=== PATIENT | male | born 1975 | race Caucasian/White ===

== ENCOUNTER 2022-07-26 10:09 | Emergency (ER) | payer SELFPAY ==
[2022-07-26] MEDS ORDERED: Lidocaine 1% PF 5 ML VIAL ONE (11:00)
[2022-07-26] MEDS ORDERED: Cefepime 2 GM VIAL ONE (11:27)
[2022-07-26 11:35] LABS: ALT (SGPT) 11 U/L (8-55); AST (SGOT) 13 U/L (5-34); Albumin 3.2 g/dL (3.5-5.0); Alkaline Phosphatase 248 U/L (40-110); Anion Gap 13 mmol/L (10-20); BUN (Urea Nitrogen) 16 mg/dL (8.9-20.6); Bilirubin, Total 0.7 mg/dL (0.2-1.2); CK (CPK) 45 U/L (30-200); Calc. Creatinine Clearance 0 mL/min (70-130); Calcium 8.9 mg/dL (7.8-10.44); Carbon Dioxide 27 mmol/L (22-29); Chloride 94 mmol/L (98-107); Estimated GFR 77; Globulin 3.4 g/dL (2.4-3.5); Potassium 4.4 mmol/L (3.5-5.1); Protein, Total 6.6 g/dL (6.0-8.3); Sodium 130 mmol/L (136-145)
[2022-07-26 11:38] LABS: Glucose 463 mg/dL (70-105)
[2022-07-26 11:54] LABS: Band 2 % (5-11); Hemoglobin 16.1 g/dL (14.0-18.0); Lymphocytes 13 % (21-51); MDiff Complete? YES; Mean Corpuscular HGB CONC 34.3 g/dL (32.0-36.0); Mean Corpuscular Hemoglobin 29.6 pg (27.0-31.0); Mean Corpuscular Volume 86.2 fl (78.0-98.0); Mean Platelet Volume 8.3 fL (7.4-10.4); Monocytes 11 % (0-10); Neutrophil 74 % (42-75); Platelet Count 289 10x3/uL (130-400); Platelet Morphology Comment Appears Adequate; RBC Distribution Width 11.7 % (11.5-14.5); Red Blood Cell (RBC) Count 5.44 mill/uL (4.70-6.10); White Blood Cell (WBC) Count 22.8 10x3/uL (4.8-10.8)
[2022-07-26] MEDS ORDERED: VANCOMYCIN 2 GRAM/500 ML BAG 2 GM in Premix Bag 1 BAG IVPB SCH (12:00)
[2022-07-26] MEDS ORDERED: Vancomycin 1.5 GRAM/300 ML BAG 1.5 GM in Premix Bag 1 BAG IVPB SCH (12:00)
== END 2022-07-26 13:44 | disposition home or self-care (01) ==
LOC: ERS 10:09
DX: L02.11 Cutaneous abscess of neck (principal); E11.9 Type 2 diabetes mellitus without complications
CPT/HCPCS: 10060; 36415; 80053; 82550; 83605; 85025; 87070; 87077; 87186; 87205; 93005; 96365; 96367; J0692; J3370

== ENCOUNTER 2022-08-02 15:30 | Inpatient (IN) | payer SELFPAY ==
[~2022-08-02 15:30] MED LIST: Iopamidol-370 76% 500 ML 1 ML ONE
[2022-08-02 16:06] LABS: Hemoglobin 15.5 g/dL (14.0-18.0); Mean Corpuscular HGB CONC 33.6 g/dL (32.0-36.0); Mean Corpuscular Volume 86.1 fl (78.0-98.0); Mean Platelet Volume 8.8 fL (7.4-10.4); Platelet Count 402 10x3/uL (130-400); RBC Distribution Width 12.1 % (11.5-14.5); Red Blood Cell (RBC) Count 5.36 mill/uL (4.70-6.10); White Blood Cell (WBC) Count 46.6 10x3/uL (4.8-10.8)
[2022-08-02 16:25] LABS: ALT (SGPT) 22 U/L (8-55); AST (SGOT) 34 U/L (5-34); Albumin 2.6 g/dL (3.5-5.0); Alkaline Phosphatase 413 U/L (40-110); Anion Gap 17 mmol/L (10-20); BUN (Urea Nitrogen) 18 mg/dL (8.9-20.6); Bilirubin, Total 2.3 mg/dL (0.2-1.2); Calc. Creatinine Clearance 0 mL/min (70-130); Calcium 9.2 mg/dL (7.8-10.44); Carbon Dioxide 28 mmol/L (22-29); Chloride 88 mmol/L (98-107); Estimated GFR 84; Globulin 4.3 g/dL (2.4-3.5); Glucose 387 mg/dL (70-105); Protein, Total 6.9 g/dL (6.0-8.3); Sodium 129 mmol/L (136-145)
[2022-08-02 16:34] LABS: Band 22 % (5-11); Lymphocytes 3 % (21-51); MDiff Complete? YES; Monocytes 10 % (0-10); Neutrophil 64 % (42-75); Platelet Morphology Comment Appears Increased; RBC Morphology Normal; Reactive Lymphocytes 1 % (0-10)
[2022-08-02] MEDS ORDERED: Vancomycin 1.5 GRAM/300 ML BAG 1.5 GM in Premix Bag 1 BAG IVPB SCH (16:45)
[2022-08-02 16:48] LABS: CKMB 0.5 ng/mL (0-6.6)
[2022-08-02] MEDS ORDERED: Piperacillin/Tazobactam 4.5 GM VIAL ONE (16:56)
[2022-08-02] MEDS ORDERED: Aspirin Chewable 81 MG TAB ONE (17:38)
[2022-08-02] MEDS ORDERED: Ondansetron ODT 4 MG TAB PO PRN (18:05)
[2022-08-02] MEDS ORDERED: Ondansetron PF 4 MG/2 ML Vial IVP PRN (18:05)
[2022-08-02] MEDS ORDERED: Dextrose 50% Abboject 50 ML SYRINGE SLOW IVP PRN (18:19)
[2022-08-02] MEDS ORDERED: Dextrose 5% in Water 1,000 ML IV PRN (18:19)
[2022-08-02 18:43] LABS: Hemoglobin A1c 10.3 % (4.0-6.0)
[2022-08-02 20:32] LABS: Troponin I Less than 0.010 ng/mL (< 0.028)
[2022-08-02 21:02] VITALS: BMI 21.7
[2022-08-02] MEDS: Sodium Chloride 0.9% 1,000 ML IV SCH (21:04)
[2022-08-02] MEDS: Piperacillin/Tazobactam 3.375 GM in Sodium Chloride 0.9% 100 ML IVPB SCH (21:10)
[2022-08-02] MEDS: HumaLOG 300 UNITS/3 ML VIAL SC PRN (21:14)
[2022-08-02] MEDS: Nicotine 14 MG PATCH TD SCH (21:14)
[2022-08-02] MEDS: Acetaminophen 325 MG TAB PO PRN (23:56)
[2022-08-03 01:46] LABS: Troponin I 0.156 ng/mL (< 0.028)
[2022-08-03] MEDS: Acetaminophen 325 MG TAB PO PRN ×2 (03:40→17:03)
[2022-08-03] MEDS: Sodium Chloride 0.9% 1,000 ML IV SCH ×2 (04:28→14:02)
[2022-08-03] MEDS: VANCOMYCIN 1.25 GM/250 ML BAG 1.25 GM in Premix Bag 1 BAG IVPB SCH ×2 (05:24→18:26)
[2022-08-03] MEDS: HumaLOG 300 UNITS/3 ML VIAL SC PRN ×4 (05:27→21:37)
[2022-08-03 06:53] LABS: Anion Gap 12 mmol/L (10-20); BUN (Urea Nitrogen) 23 mg/dL (8.9-20.6); Calc. Creatinine Clearance 78 mL/min (70-130); Calcium 7.9 mg/dL (7.8-10.44); Carbon Dioxide 22 mmol/L (22-29); Chloride 94 mmol/L (98-107); Estimated GFR 78; Glucose 312 mg/dL (70-105); Potassium 3.3 mmol/L (3.5-5.1); Sodium 125 mmol/L (136-145)
[2022-08-03 06:57] LABS: Troponin I 0.016 ng/mL (< 0.028)
[2022-08-03 07:38] LABS: Hemoglobin 11.8 g/dL (14.0-18.0); Mean Corpuscular HGB CONC 33.1 g/dL (32.0-36.0); Mean Corpuscular Hemoglobin 28.7 pg (27.0-31.0); Mean Corpuscular Volume 86.6 fl (78.0-98.0); Mean Platelet Volume 8.7 fL (7.4-10.4); Platelet Count 345 10x3/uL (130-400); Red Blood Cell (RBC) Count 4.11 mill/uL (4.70-6.10); White Blood Cell (WBC) Count 37.5 10x3/uL (4.8-10.8)
[2022-08-03] MEDS: Piperacillin/Tazobactam 3.375 GM in Sodium Chloride 0.9% 100 ML IVPB SCH ×3 (08:13→21:36)
[2022-08-03 08:18] LABS: Band 47 % (5-11); Lymphocytes 2 % (21-51); MDiff Complete? YES; Metamyelocyte 1 % (0-0); Monocytes 6 % (0-10); Neutrophil 43 % (42-75); Platelet Morphology Comment Appears Adequate; RBC Morphology Normal; Reactive Lymphocytes 1 % (0-10); Toxic Granulation SLIGHT; Vacuoles SLIGHT
[2022-08-03] MEDS ORDERED: Insulin Glargine 30 UNITS/0.3 ML VIAL SC SCH (09:45)
[2022-08-03] MEDS ORDERED: Morphine 4 MG/ML VIAL SLOW IVP PRN (10:49)
[2022-08-03 16:21] LABS: HIV (1/2) Antibody/Antigen Non-Reactive (NonReactive); HIV 1/2 INDEX 0.18 S/CO (<1.00); Hep C IgG Ab Non-Reactive (NonReactive); Hep C Index 0.09 S/CO (0-0.79)
[2022-08-03] MEDS: Nicotine 14 MG PATCH TD SCH (17:33)
[2022-08-04] MEDS: Sodium Chloride 0.9% 1,000 ML IV SCH ×3 (00:23→22:16)
[2022-08-04] MEDS: Piperacillin/Tazobactam 3.375 GM in Sodium Chloride 0.9% 100 ML IVPB SCH ×2 (05:20→14:30)
[2022-08-04] MEDS: HumaLOG 300 UNITS/3 ML VIAL SC PRN (05:21)
[2022-08-04] MEDS: Acetaminophen 325 MG TAB PO PRN (05:27)
[2022-08-04 05:59] LABS: Hemoglobin 12.2 g/dL (14.0-18.0); Mean Corpuscular HGB CONC 34.4 g/dL (32.0-36.0); Mean Corpuscular Hemoglobin 29.6 pg (27.0-31.0); Mean Corpuscular Volume 86.1 fl (78.0-98.0); Mean Platelet Volume 8.8 fL (7.4-10.4); Platelet Count 351 10x3/uL (130-400); RBC Distribution Width 12.2 % (11.5-14.5); Red Blood Cell (RBC) Count 4.13 mill/uL (4.70-6.10); White Blood Cell (WBC) Count 33.4 10x3/uL (4.8-10.8)
[2022-08-04 06:12] LABS: Vancomycin, Trough 18.1 ug/mL
[2022-08-04 06:14] LABS: Anion Gap 14 mmol/L (10-20); BUN (Urea Nitrogen) 23 mg/dL (8.9-20.6); Calc. Creatinine Clearance 93 mL/min (70-130); Calcium 8.1 mg/dL (7.8-10.44); Carbon Dioxide 22 mmol/L (22-29); Chloride 96 mmol/L (98-107); Estimated GFR 96; Glucose 193 mg/dL (70-105); Potassium 3.6 mmol/L (3.5-5.1); Sodium 128 mmol/L (136-145)
[2022-08-04] MEDS: VANCOMYCIN 1.25 GM/250 ML BAG 1.25 GM in Premix Bag 1 BAG IVPB SCH ×2 (06:38→22:16)
[2022-08-04 08:59] LABS: Band 18 % (5-11); Lymphocytes 4 % (21-51); MDiff Complete? YES; Monocytes 7 % (0-10); Myelocyte 2 % (0-0); Neutrophil 69 % (42-75); Platelet Morphology Comment Appears Adequate; Toxic Granulation SLIGHT
[2022-08-04] MEDS ORDERED: Insulin Glargine 30 UNITS/0.3 ML VIAL SC SCH ×2 (09:00)
[2022-08-04] MEDS ORDERED: Fentanyl 250 MCG/5 ML VIAL ONE (16:20)
[2022-08-04] MEDS ORDERED: Midazolam HCl 2 mg/2 ml Vial ONE (16:20)
[2022-08-04] MEDS ORDERED: HYDROmorphone 0.5 MG/0.5 ML SYRINGE ONE (16:21)
[2022-08-04] MEDS ORDERED: PROPOFOL 200 MG/20 ML VIAL ONE (16:36)
[2022-08-04] MEDS ORDERED: Ondansetron PF 4 MG/2 ML Vial ONE (16:36)
[2022-08-04] MEDS ORDERED: Rocuronium Bromide 10 MG/ML (10ML VIAL) ONE (16:36)
[2022-08-04] MEDS ORDERED: PHENYLEPHRINE-NS 100 MCG/ML 10 ML SYRINGE ONE (16:36)
[2022-08-04] MEDS ORDERED: Succinylcholine Chloride 100 MG/5 ML SYRINGE FS ONE (16:36)
[2022-08-04] MEDS ORDERED: Lidocaine 1% PF 5 ML VIAL ONE (16:36)
[2022-08-04] MEDS ORDERED: Dexmedetomidine 200 MCG/2 ML VIAL ONE (17:34)
[2022-08-04] MEDS ORDERED: Promethazine HCl 25 MG/ML VIAL IM PRN ×2 (17:40→17:44)
[2022-08-04] MEDS ORDERED: Naloxone HCl 0.4 mg/ml Vial IV PRN (17:40)
[2022-08-04] MEDS ORDERED: diphenhydrAMINE 50 MG/ML VIAL IVP PRN (17:40)
[2022-08-04] MEDS ORDERED: diphenhydrAMINE 25 MG CAP PO PRN (17:40)
[2022-08-04] MEDS ORDERED: Ondansetron PF 4 MG/2 ML Vial IVP PRN (17:40)
[2022-08-04] MEDS ORDERED: HYDROmorphone 10 mg/100 ml CADD IVPB PRN (17:40)
[2022-08-04] MEDS ORDERED: diphenhydrAMINE 50 MG/ML VIAL IM PRN (17:40)
[2022-08-04] MEDS ORDERED: Zolpidem Tartrate 5 MG TAB PO PRN (17:40)
[2022-08-04] MEDS ORDERED: Ketorolac Tromethamine 30 MG/ML VIAL IVP PRN ×2 (17:43→17:44)
[2022-08-04] MEDS ORDERED: Ondansetron HCl/PF 4 MG/2 ML Vial IVP PRN (17:44)
[2022-08-04] MEDS ORDERED: Promethazine HCl 25 MG/ML VIAL IVPB PRN (17:44)
[2022-08-04] MEDS ORDERED: Communication Order-Pharmacy FS SCH (17:45)
[2022-08-04] MEDS: Nicotine 14 MG PATCH TD SCH ×2 (22:17→22:57)
[2022-08-04] MEDS: Gabapentin 300 MG CAP PO SCH (22:30)
[2022-08-05] MEDS: Piperacillin/Tazobactam 3.375 GM in Sodium Chloride 0.9% 100 ML IVPB SCH ×4 (00:25→21:45)
[2022-08-05] MEDS: Ketorolac Tromethamine 30 MG/ML VIAL IVP SCH ×2 (00:36→06:09)
[2022-08-05] MEDS ORDERED: Sodium Chloride 0.9% 500 ML IV SCH ×2 (04:00→05:15)
[2022-08-05] MEDS: Sodium Chloride 0.9% 1,000 ML IV SCH ×3 (04:18→21:47)
[2022-08-05 04:47] LABS: Anion Gap 9 mmol/L (10-20); BUN (Urea Nitrogen) 27 mg/dL (8.9-20.6); Calc. Creatinine Clearance 90 mL/min (70-130); Carbon Dioxide 22 mmol/L (22-29); Chloride 101 mmol/L (98-107); Estimated GFR 92; Glucose 222 mg/dL (70-105); Potassium 3.7 mmol/L (3.5-5.1); Sodium 128 mmol/L (136-145)
[2022-08-05 05:07] LABS: Calcium 6.9 mg/dL (7.8-10.44)
[2022-08-05 06:04] LABS: Hemoglobin 8.5 g/dL (14.0-18.0); Mean Corpuscular HGB CONC 33.2 g/dL (32.0-36.0); Mean Corpuscular Hemoglobin 29.1 pg (27.0-31.0); Mean Corpuscular Volume 87.7 fl (78.0-98.0); Mean Platelet Volume 9.1 fL (7.4-10.4); Platelet Count 239 10x3/uL (130-400); RBC Distribution Width 12.4 % (11.5-14.5); Red Blood Cell (RBC) Count 2.94 mill/uL (4.70-6.10); White Blood Cell (WBC) Count 23.8 10x3/uL (4.8-10.8)
[2022-08-05] MEDS: VANCOMYCIN 1.25 GM/250 ML BAG 1.25 GM in Premix Bag 1 BAG IVPB SCH ×2 (06:12→18:59)
[2022-08-05 07:55] LABS: Band 14 % (5-11); Lymphocytes 9 % (21-51); MDiff Complete? YES; Monocytes 11 % (0-10); Myelocyte 1 % (0-0); Neutrophil 65 % (42-75); Platelet Morphology Comment Appears Adequate; Polychromasia SLIGHT = 2-3 cells (100X) (0-2/hpf)
[2022-08-05] MEDS: Gabapentin 300 MG CAP PO SCH ×3 (08:14→20:15)
[2022-08-05] MEDS: Insulin Glargine 30 UNITS/0.3 ML VIAL SC SCH (09:25)
[2022-08-05] MEDS ORDERED: HYDROcodone/Acetaminophen 5/325 mg Tablet PO PRN ×2 (12:05→12:06)
[2022-08-05] MEDS ORDERED: traMADol HCl 50 MG TAB PO PRN ×2 (12:06)
[2022-08-05] MEDS ORDERED: Fentanyl 100 MCG/2 ML VIAL SLOW IVP PRN (12:07)
[2022-08-05] MEDS: Albumin 25% 25 GM/100 ML BOT IVPB SCH ×3 (12:51→23:50)
[2022-08-05] MEDS: HumaLOG 300 UNITS/3 ML VIAL SC PRN ×3 (12:51→20:16)
[2022-08-05] MEDS: Nicotine 14 MG PATCH TD SCH (17:24)
[2022-08-05 17:45] LABS: Vancomycin, Trough 28.3 ug/mL
[2022-08-05] MEDS: Calcium Carbonate 600 MG TAB PO SCH (20:15)
[2022-08-06] MEDS: Piperacillin/Tazobactam 3.375 GM in Sodium Chloride 0.9% 100 ML IVPB SCH ×3 (05:01→21:20)
[2022-08-06] MEDS: Albumin 25% 25 GM/100 ML BOT IVPB SCH (05:07)
[2022-08-06] MEDS: Acetaminophen 325 MG TAB PO PRN (05:27)
[2022-08-06] MEDS: Sodium Chloride 0.9% 1,000 ML IV SCH (05:34)
[2022-08-06] MEDS ORDERED: Vancomycin HCl 750 MG in Sodium Chloride 0.9% 250 ML 250 ML IVPB SCH (06:00)
[2022-08-06 06:36] LABS: Hemoglobin 7.5 g/dL (14.0-18.0); Mean Corpuscular HGB CONC 33.1 g/dL (32.0-36.0); Mean Corpuscular Hemoglobin 28.7 pg (27.0-31.0); Mean Corpuscular Volume 86.8 fl (78.0-98.0); Mean Platelet Volume 8.3 fL (7.4-10.4); Platelet Count 352 10x3/uL (130-400); RBC Distribution Width 12.5 % (11.5-14.5); White Blood Cell (WBC) Count 20.7 10x3/uL (4.8-10.8)
[2022-08-06 06:38] LABS: Vancomycin, Random 22.6 ug/mL (See Comment)
[2022-08-06 06:50] LABS: Anion Gap 12 mmol/L (10-20); BUN (Urea Nitrogen) 45 mg/dL (8.9-20.6); Calc. Creatinine Clearance 41 mL/min (70-130); Calcium 7.5 mg/dL (7.8-10.44); Carbon Dioxide 23 mmol/L (22-29); Chloride 101 mmol/L (98-107); Estimated GFR 36; Glucose 175 mg/dL (70-105); Potassium 3.7 mmol/L (3.5-5.1); Sodium 132 mmol/L (136-145)
[2022-08-06] MEDS: Calcium Carbonate 600 MG TAB PO SCH ×2 (07:59→21:20)
[2022-08-06] MEDS: Cholecalciferol 1,000 UNITS (25 MCG) TAB PO SCH (07:59)
[2022-08-06] MEDS: Insulin Glargine 30 UNITS/0.3 ML VIAL SC SCH (07:59)
[2022-08-06] MEDS: Gabapentin 300 MG CAP PO SCH ×3 (08:00→21:20)
[2022-08-06] MEDS ORDERED: Calcium Carbonate 600 MG + Vit D TAB PO SCH (08:00)
[2022-08-06 08:32] LABS: Band 11 % (5-11); Eosinophils 1 % (0-10); Lymphocytes 15 % (21-51); MDiff Complete? YES; Metamyelocyte 2 % (0-0); Monocytes 6 % (0-10); Myelocyte 6 % (0-0); Neutrophil 59 % (42-75); Polychromasia MODERATE = 3-4 cells (100X) (0-2/hpf)
[2022-08-06] MEDS: Vancomycin HCl 750 MG in Sodium Chloride 0.9% 250 ML 250 ML IVPB SCH (17:28)
[2022-08-06] MEDS: Nicotine 14 MG PATCH TD SCH ×2 (17:31→17:33)
[2022-08-06] MEDS: HumaLOG 300 UNITS/3 ML VIAL SC PRN (21:21)
[2022-08-07] MEDS: Piperacillin/Tazobactam 3.375 GM in Sodium Chloride 0.9% 100 ML IVPB SCH (05:55)
[2022-08-07 06:21] LABS: Hemoglobin 8.6 g/dL (14.0-18.0); Mean Corpuscular HGB CONC 33.1 g/dL (32.0-36.0); Mean Corpuscular Hemoglobin 28.5 pg (27.0-31.0); Mean Platelet Volume 8.3 fL (7.4-10.4); Platelet Count 446 10x3/uL (130-400); RBC Distribution Width 12.8 % (11.5-14.5); Red Blood Cell (RBC) Count 3.02 mill/uL (4.70-6.10); White Blood Cell (WBC) Count 23.2 10x3/uL (4.8-10.8)
[2022-08-07 06:37] LABS: Anion Gap 10 mmol/L (10-20); BUN (Urea Nitrogen) 60 mg/dL (8.9-20.6); Calc. Creatinine Clearance 34 mL/min (70-130); Calcium 7.4 mg/dL (7.8-10.44); Carbon Dioxide 21 mmol/L (22-29); Chloride 104 mmol/L (98-107); Estimated GFR 28; Glucose 260 mg/dL (70-105); Potassium 3.9 mmol/L (3.5-5.1); Sodium 131 mmol/L (136-145)
[2022-08-07] MEDS: HumaLOG 300 UNITS/3 ML VIAL SC PRN ×2 (06:40→20:42)
[2022-08-07 06:41] LABS: Band 9 % (5-11); Eosinophils 2 % (0-10); Hypochromia SLIGHT = 6-15 cells (100X) (0-5/hpf); Lymphocytes 16 % (21-51); MDiff Complete? YES; Monocytes 11 % (0-10); Neutrophil 62 % (42-75); Platelet Morphology Comment Appears Adequate
[2022-08-07] MEDS: Calcium Carbonate 600 MG TAB PO SCH ×2 (07:49→20:41)
[2022-08-07] MEDS: Cholecalciferol 1,000 UNITS (25 MCG) TAB PO SCH (07:50)
[2022-08-07] MEDS: Gabapentin 300 MG CAP PO SCH ×3 (07:50→20:41)
[2022-08-07] MEDS: Insulin Glargine 30 UNITS/0.3 ML VIAL SC SCH (07:51)
[2022-08-07] MEDS ORDERED: Sodium Chloride 0.9% 1,000 ML IV SCH (12:30)
[2022-08-07] MEDS ORDERED: Vancomycin Dose by Levels Sliding Scale (Wt <71) FS SCH (12:45)
[2022-08-07] MEDS: metroNIDAZOLE 250 MG TAB PO SCH ×2 (14:57→20:41)
[2022-08-07] MEDS ORDERED: HYDROmorphone 2 MG/ML VIAL ONE (15:29)
[2022-08-07] MEDS ORDERED: Acetaminophen 500 MG TAB PO PRN ×2 (16:11→16:30)
[2022-08-07] MEDS ORDERED: Acetaminophen 500 MG TAB PO SCH (16:15)
[2022-08-07] MEDS ORDERED: PROPOFOL 200 MG/20 ML VIAL ONE (16:18)
[2022-08-07] MEDS ORDERED: Rocuronium Bromide 10 MG/ML (10ML VIAL) ONE (16:18)
[2022-08-07] MEDS ORDERED: Lidocaine 1% PF 5 ML VIAL ONE (16:18)
[2022-08-07] MEDS ORDERED: Succinylcholine Chloride 100 MG/5 ML SYRINGE FS ONE (16:18)
[2022-08-07] MEDS ORDERED: ePHEDrine 50 MG/ML VIAL ONE (16:18)
[2022-08-07] MEDS ORDERED: PHENYLEPHRINE-NS 100 MCG/ML 10 ML SYRINGE ONE (16:18)
[2022-08-07] MEDS ORDERED: Ketorolac Tromethamine 30 MG/ML VIAL ONE (16:18)
[2022-08-07] MEDS ORDERED: Ondansetron PF 4 MG/2 ML Vial ONE (16:18)
[2022-08-07] MEDS: Vancomycin HCl 750 MG in Sodium Chloride 0.9% 250 ML 250 ML IVPB SCH (18:03)
[2022-08-07] MEDS: Nicotine 14 MG PATCH TD SCH (18:08)
[2022-08-07] MEDS: Cipro 250 MG TAB PO SCH (20:41)
[2022-08-08] MEDS: HumaLOG 300 UNITS/3 ML VIAL SC PRN ×4 (06:16→20:57)
[2022-08-08] MEDS: Cipro 250 MG TAB PO SCH ×2 (06:16→20:56)
[2022-08-08 07:46] LABS: Hemoglobin 8.4 g/dL (14.0-18.0); Mean Corpuscular HGB CONC 33.4 g/dL (32.0-36.0); Mean Corpuscular Hemoglobin 28.9 pg (27.0-31.0); Mean Corpuscular Volume 86.4 fl (78.0-98.0); Mean Platelet Volume 8.1 fL (7.4-10.4); Platelet Count 462 10x3/uL (130-400); RBC Distribution Width 13.4 % (11.5-14.5); Red Blood Cell (RBC) Count 2.89 mill/uL (4.70-6.10); White Blood Cell (WBC) Count 22.1 10x3/uL (4.8-10.8)
[2022-08-08 08:06] LABS: ALT (SGPT) 14 U/L (8-55); AST (SGOT) 23 U/L (5-34); Albumin 2.1 g/dL (3.5-5.0); Alkaline Phosphatase 680 U/L (40-110); Anion Gap 8 mmol/L (10-20); BUN (Urea Nitrogen) 59 mg/dL (8.9-20.6); Bilirubin, Total 3.2 mg/dL (0.2-1.2); Calc. Creatinine Clearance 35 mL/min (70-130); Calcium 8.2 mg/dL (7.8-10.44); Carbon Dioxide 21 mmol/L (22-29); Chloride 107 mmol/L (98-107); Estimated GFR 30; Globulin 2.9 g/dL (2.4-3.5); Glucose 240 mg/dL (70-105); Potassium 3.8 mmol/L (3.5-5.1); Sodium 132 mmol/L (136-145)
[2022-08-08 08:13] LABS: Band 6 % (5-11); Eosinophils 1 % (0-10); Lymphocytes 7 % (21-51); MDiff Complete? YES; Metamyelocyte 3 % (0-0); Monocytes 2 % (0-10); Myelocyte 4 % (0-0); Neutrophil 77 % (42-75); Toxic Granulation SLIGHT
[2022-08-08] MEDS: Insulin Glargine 30 UNITS/0.3 ML VIAL SC SCH (08:29)
[2022-08-08] MEDS: Calcium Carbonate 600 MG TAB PO SCH ×2 (08:29→20:57)
[2022-08-08] MEDS: Cholecalciferol 1,000 UNITS (25 MCG) TAB PO SCH (08:29)
[2022-08-08] MEDS: Gabapentin 300 MG CAP PO SCH ×3 (08:29→20:56)
[2022-08-08] MEDS: metroNIDAZOLE 250 MG TAB PO SCH ×3 (08:29→20:57)
[2022-08-08] MEDS: Polyethylene Glycol 3350 17 GM Packet PO SCH (08:30)
[2022-08-08] MEDS ORDERED: Lidocaine 4% Topical Sol 50 ML BOT TOP PRN (11:57)
[2022-08-08 17:29] LABS: Vancomycin, Trough 18.7 ug/mL
[2022-08-08] MEDS: Nicotine 14 MG PATCH TD SCH (17:32)
[2022-08-09] MEDS: HumaLOG 300 UNITS/3 ML VIAL SC PRN ×4 (05:10→20:33)
[2022-08-09] MEDS: Cipro 250 MG TAB PO SCH ×2 (05:10→20:33)
[2022-08-09] MEDS ORDERED: Calcium Carbonate 500 MG ChewTAB PO PRN (05:42)
[2022-08-09 05:56] LABS: ALT (SGPT) 14 U/L (8-55); AST (SGOT) 23 U/L (5-34); Albumin 2.1 g/dL (3.5-5.0); Alkaline Phosphatase 784 U/L (40-110); Anion Gap 9 mmol/L (10-20); BUN (Urea Nitrogen) 59 mg/dL (8.9-20.6); Bilirubin, Total 2.7 mg/dL (0.2-1.2); Calc. Creatinine Clearance 33 mL/min (70-130); Calcium 8.2 mg/dL (7.8-10.44); Carbon Dioxide 25 mmol/L (22-29); Chloride 104 mmol/L (98-107); Estimated GFR 28; Globulin 3.1 g/dL (2.4-3.5); Glucose 306 mg/dL (70-105); Potassium 4.1 mmol/L (3.5-5.1); Protein, Total 5.2 g/dL (6.0-8.3); Sodium 134 mmol/L (136-145)
[2022-08-09 06:14] LABS: Band 15 % (5-11); Hemoglobin 8.4 g/dL (14.0-18.0); Hypochromia SLIGHT = 6-15 cells (100X) (0-5/hpf); Lymphocytes 8 % (21-51); MDiff Complete? YES; Mean Corpuscular HGB CONC 33.2 g/dL (32.0-36.0); Mean Corpuscular Hemoglobin 28.7 pg (27.0-31.0); Mean Corpuscular Volume 86.4 fl (78.0-98.0); Mean Platelet Volume 8.2 fL (7.4-10.4); Monocytes 3 % (0-10); Neutrophil 74 % (42-75); Platelet Count 543 10x3/uL (130-400); Platelet Morphology Comment Appears Increased; RBC Distribution Width 14.3 % (11.5-14.5); Red Blood Cell (RBC) Count 2.94 mill/uL (4.70-6.10); White Blood Cell (WBC) Count 20.3 10x3/uL (4.8-10.8)
[2022-08-09] MEDS: Insulin Glargine 30 UNITS/0.3 ML VIAL SC SCH ×2 (08:42→20:33)
[2022-08-09] MEDS: Gabapentin 300 MG CAP PO SCH ×3 (08:42→20:32)
[2022-08-09] MEDS: Calcium Carbonate 600 MG TAB PO SCH ×2 (08:42→20:33)
[2022-08-09] MEDS: Cholecalciferol 1,000 UNITS (25 MCG) TAB PO SCH (08:42)
[2022-08-09] MEDS: metroNIDAZOLE 250 MG TAB PO SCH ×3 (08:44→20:33)
[2022-08-09] MEDS: Polyethylene Glycol 3350 17 GM Packet PO SCH (08:44)
[2022-08-09] MEDS: Nicotine 14 MG PATCH TD SCH (17:18)
[2022-08-09] MEDS: Vancomycin HCl 750 MG in Sodium Chloride 0.9% 250 ML 250 ML IVPB SCH (17:19)
[2022-08-10] MEDS: HumaLOG 300 UNITS/3 ML VIAL SC PRN ×3 (05:18→20:55)
[2022-08-10] MEDS: Cipro 250 MG TAB PO SCH ×2 (05:18→20:55)
[2022-08-10 06:04] LABS: ALT (SGPT) 10 U/L (8-55); AST (SGOT) 22 U/L (5-34); Albumin 2.1 g/dL (3.5-5.0); Alkaline Phosphatase 745 U/L (40-110); Anion Gap 9 mmol/L (10-20); BUN (Urea Nitrogen) 51 mg/dL (8.9-20.6); Bilirubin, Total 2.6 mg/dL (0.2-1.2); Calc. Creatinine Clearance 35 mL/min (70-130); Calcium 8.1 mg/dL (7.8-10.44); Carbon Dioxide 22 mmol/L (22-29); Chloride 107 mmol/L (98-107); Estimated GFR 30; Glucose 186 mg/dL (70-105); Potassium 4.3 mmol/L (3.5-5.1); Protein, Total 5.1 g/dL (6.0-8.3); Sodium 134 mmol/L (136-145)
[2022-08-10 06:29] LABS: Hemoglobin 8.5 g/dL (14.0-18.0); Mean Corpuscular HGB CONC 33.2 g/dL (32.0-36.0); Mean Corpuscular Hemoglobin 28.8 pg (27.0-31.0); Mean Corpuscular Volume 86.8 fl (78.0-98.0); Platelet Count 613 10x3/uL (130-400); Red Blood Cell (RBC) Count 2.94 mill/uL (4.70-6.10); White Blood Cell (WBC) Count 20.4 10x3/uL (4.8-10.8)
[2022-08-10 07:47] LABS: Band 9 % (5-11); Hypochromia SLIGHT = 6-15 cells (100X) (0-5/hpf); Lymphocytes 5 % (21-51); MDiff Complete? YES; Monocytes 6 % (0-10); Myelocyte 4 % (0-0); Neutrophil 75 % (42-75); Platelet Morphology Comment Appears Increased; Polychromasia SLIGHT = 2-3 cells (100X) (0-2/hpf); Reactive Lymphocytes 1 % (0-10); Target Cells SLIGHT = 2-5 cells (100X) (0-1/hpf)
[2022-08-10] MEDS: Cholecalciferol 1,000 UNITS (25 MCG) TAB PO SCH (08:35)
[2022-08-10] MEDS: Gabapentin 300 MG CAP PO SCH ×3 (08:35→20:55)
[2022-08-10] MEDS: metroNIDAZOLE 250 MG TAB PO SCH ×3 (08:35→20:55)
[2022-08-10] MEDS: Calcium Carbonate 600 MG TAB PO SCH ×2 (08:35→20:55)
[2022-08-10] MEDS: Insulin Glargine 30 UNITS/0.3 ML VIAL SC SCH ×2 (08:36→20:55)
[2022-08-10] MEDS: Polyethylene Glycol 3350 17 GM Packet PO SCH (08:36)
[2022-08-10 17:37] LABS: Vancomycin, Trough 15.4 ug/mL
[2022-08-10] MEDS: Nicotine 14 MG PATCH TD SCH (17:47)
[2022-08-10] MEDS: Vancomycin HCl 750 MG in Sodium Chloride 0.9% 250 ML 250 ML IVPB SCH (18:14)
[2022-08-10 21:45] LABS: Creatinine, Urine 33.46 mg/dL (63-166)
[2022-08-11] MEDS: HumaLOG 300 UNITS/3 ML VIAL SC PRN ×2 (05:46→20:14)
[2022-08-11] MEDS: Cipro 250 MG TAB PO SCH (05:46)
[2022-08-11 06:39] LABS: ALT (SGPT) 15 U/L (8-55); AST (SGOT) 28 U/L (5-34); Albumin 2.1 g/dL (3.5-5.0); Alkaline Phosphatase 752 U/L (40-110); Anion Gap 11 mmol/L (10-20); BUN (Urea Nitrogen) 48 mg/dL (8.9-20.6); Bilirubin, Total 2.8 mg/dL (0.2-1.2); Calc. Creatinine Clearance 36 mL/min (70-130); Calcium 8.2 mg/dL (7.8-10.44); Carbon Dioxide 22 mmol/L (22-29); Chloride 108 mmol/L (98-107); Estimated GFR 31; Globulin 3.2 g/dL (2.4-3.5); Glucose 109 mg/dL (70-105); Potassium 4.6 mmol/L (3.5-5.1); Protein, Total 5.3 g/dL (6.0-8.3); Sodium 136 mmol/L (136-145)
[2022-08-11 06:50] LABS: Band 6 % (5-11); Hemoglobin 7.8 g/dL (14.0-18.0); Hypochromia SLIGHT = 6-15 cells (100X) (0-5/hpf); Lymphocytes 10 % (21-51); MDiff Complete? YES; Mean Corpuscular HGB CONC 31.7 g/dL (32.0-36.0); Mean Corpuscular Volume 88.5 fl (78.0-98.0); Mean Platelet Volume 7.9 fL (7.4-10.4); Monocytes 5 % (0-10); Neutrophil 79 % (42-75); Platelet Count 654 10x3/uL (130-400); Platelet Morphology Comment Appears Increased; RBC Distribution Width 15.8 % (11.5-14.5); Red Blood Cell (RBC) Count 2.78 mill/uL (4.70-6.10); White Blood Cell (WBC) Count 21.1 10x3/uL (4.8-10.8)
[2022-08-11] MEDS: Polyethylene Glycol 3350 17 GM Packet PO SCH (09:08)
[2022-08-11] MEDS: Gabapentin 300 MG CAP PO SCH ×3 (10:05→20:06)
[2022-08-11] MEDS: Cholecalciferol 1,000 UNITS (25 MCG) TAB PO SCH (10:05)
[2022-08-11] MEDS: Calcium Carbonate 600 MG TAB PO SCH ×2 (10:05→20:06)
[2022-08-11] MEDS: metroNIDAZOLE 250 MG TAB PO SCH ×2 (10:06→14:26)
[2022-08-11] MEDS: Insulin Glargine 30 UNITS/0.3 ML VIAL SC SCH ×2 (10:06→20:13)
[2022-08-11] MEDS: Nicotine 14 MG PATCH TD SCH (17:25)
[2022-08-11] MEDS: Vancomycin HCl 750 MG in Sodium Chloride 0.9% 250 ML 250 ML IVPB SCH (17:50)
[2022-08-12] MEDS: HumaLOG 300 UNITS/3 ML VIAL SC PRN ×2 (05:26→16:48)
[2022-08-12 07:32] LABS: #Basophils 0.1 thou/uL (0.0-0.2); #Eosinphils 0.4 thou/uL (0.0-0.7); #Lymphocytes 1.9 thou/uL (1.20-3.40); #Neutrophils 15.9 thou/uL (1.40-6.50); %Basophils 0.4 % (0.0-1.0); %Eosinophils 2.2 % (0.0-10.0); %Monocytes 5.3 % (0.0-10.0); Hemoglobin 8.1 g/dL (14.0-18.0); Mean Corpuscular HGB CONC 32.7 g/dL (32.0-36.0); Mean Corpuscular Volume 88.5 fl (78.0-98.0); Mean Platelet Volume 7.5 fL (7.4-10.4); Platelet Count 695 10x3/uL (130-400); RBC Distribution Width 16.3 % (11.5-14.5); White Blood Cell (WBC) Count 19.4 10x3/uL (4.8-10.8)
[2022-08-12 07:37] LABS: Anion Gap 12 mmol/L (10-20); BUN (Urea Nitrogen) 49 mg/dL (8.9-20.6); Calc. Creatinine Clearance 34 mL/min (70-130); Calcium 7.9 mg/dL (7.8-10.44); Carbon Dioxide 18 mmol/L (22-29); Chloride 107 mmol/L (98-107); Estimated GFR 28; Glucose 154 mg/dL (70-105); Potassium 4.5 mmol/L (3.5-5.1); Sodium 132 mmol/L (136-145)
[2022-08-12] MEDS: Calcium Carbonate 600 MG TAB PO SCH ×2 (09:56→20:17)
[2022-08-12] MEDS: Cholecalciferol 1,000 UNITS (25 MCG) TAB PO SCH (09:56)
[2022-08-12] MEDS: Gabapentin 300 MG CAP PO SCH ×3 (09:58→20:17)
[2022-08-12] MEDS: Polyethylene Glycol 3350 17 GM Packet PO SCH (10:00)
[2022-08-12] MEDS: Insulin Glargine 30 UNITS/0.3 ML VIAL SC SCH ×2 (10:00→20:18)
[2022-08-12 17:22] LABS: Vancomycin, Trough 19.1 ug/mL
[2022-08-12] MEDS ORDERED: Vancomycin HCl 500 MG in Sodium Chloride 0.9% 100 ML IVPB SCH (18:00)
[2022-08-12] MEDS: Nicotine 14 MG PATCH TD SCH (18:27)
[2022-08-13 07:47] LABS: Hemoglobin 8.2 g/dL (14.0-18.0); Mean Corpuscular HGB CONC 33.8 g/dL (32.0-36.0); Mean Corpuscular Hemoglobin 29.9 pg (27.0-31.0); Mean Corpuscular Volume 88.6 fl (78.0-98.0); Mean Platelet Volume 7.8 fL (7.4-10.4); Platelet Count 701 10x3/uL (130-400); RBC Distribution Width 16.7 % (11.5-14.5); Red Blood Cell (RBC) Count 2.75 mill/uL (4.70-6.10); White Blood Cell (WBC) Count 21.2 10x3/uL (4.8-10.8)
[2022-08-13 08:03] LABS: Anion Gap 13 mmol/L (10-20); BUN (Urea Nitrogen) 48 mg/dL (8.9-20.6); Calc. Creatinine Clearance 33 mL/min (70-130); Calcium 8.3 mg/dL (7.8-10.44); Carbon Dioxide 22 mmol/L (22-29); Chloride 107 mmol/L (98-107); Estimated GFR 28; Glucose 65 mg/dL (70-105); Potassium 4.4 mmol/L (3.5-5.1); Sodium 138 mmol/L (136-145)
[2022-08-13 09:31] LABS: Band 2 % (5-11); Hypersemented Neutrophil SLIGHT; Lymphocytes 15 % (21-51); MDiff Complete? YES; Monocytes 8 % (0-10); Myelocyte 1 % (0-0); Neutrophil 74 % (42-75); Platelet Morphology Comment Appears Increased; Polychromasia SLIGHT = 2-3 cells (100X) (0-2/hpf)
[2022-08-13] MEDS: Polyethylene Glycol 3350 17 GM Packet PO SCH (09:37)
[2022-08-13] MEDS: Calcium Carbonate 600 MG TAB PO SCH (09:38)
[2022-08-13] MEDS: Gabapentin 300 MG CAP PO SCH (09:38)
[2022-08-13] MEDS: Cholecalciferol 1,000 UNITS (25 MCG) TAB PO SCH (09:38)
[2022-08-13] MEDS: Insulin Glargine 30 UNITS/0.3 ML VIAL SC SCH (09:39)
[2022-08-13 11:54] VITALS: BP 145/78; TEMP 97.8
== END 2022-08-13 14:42 | disposition home or self-care (01) | DRG 853 ==
LOC: ERS 15:30 → T4-B 18:05
PROVIDERS: ADMIT Internal Medicine; ATTEND Internal Medicine
PROC: 3E03329 Introduction of Other Anti-infective into Peripheral Vein, Percutaneous Approach (ICD-10-PCS; 2022-08-02)
PROC: 0JB40ZZ Excision of Right Neck Subcutaneous Tissue and Fascia, Open Approach (ICD-10-PCS; principal; 2022-08-04)
PROC: 0JB70ZZ Excision of Back Subcutaneous Tissue and Fascia, Open Approach (ICD-10-PCS; 2022-08-04)
PROC: 02H633Z Insertion of Infusion Device into Right Atrium, Percutaneous Approach (ICD-10-PCS; 2022-08-05)
PROC: B5181ZA Fluoroscopy of Superior Vena Cava using Low Osmolar Contrast, Guidance (ICD-10-PCS; 2022-08-05)
PROC: B548ZZA Ultrasonography of Superior Vena Cava, Guidance (ICD-10-PCS; 2022-08-05)
PROC: 3E04329 Introduction of Other Anti-infective into Central Vein, Percutaneous Approach (ICD-10-PCS; 2022-08-05)
PROC: 0JB40ZZ Excision of Right Neck Subcutaneous Tissue and Fascia, Open Approach (ICD-10-PCS; 2022-08-07)
PROC: 0JB70ZZ Excision of Back Subcutaneous Tissue and Fascia, Open Approach (ICD-10-PCS; 2022-08-07)
DX: A41.02 Sepsis due to Methicillin resistant Staphylococcus aureus (principal); J18.9 Pneumonia, unspecified organism; N17.0 Acute kidney failure with tubular necrosis; E11.52 Type 2 diabetes mellitus with diabetic peripheral angiopathy with gangrene; L02.11 Cutaneous abscess of neck; L02.212 Cutaneous abscess of back [any part, except buttock and flank]; E87.1 Hypo-osmolality and hyponatremia; N18.4 Chronic kidney disease, stage 4 (severe); E11.22 Type 2 diabetes mellitus with diabetic chronic kidney disease; F17.210 Nicotine dependence, cigarettes, uncomplicated; R77.8 Other specified abnormalities of plasma proteins; E11.65 Type 2 diabetes mellitus with hyperglycemia; D63.1 Anemia in chronic kidney disease; E55.9 Vitamin D deficiency, unspecified; I12.9 Hypertensive chronic kidney disease with stage 1 through stage 4 chronic kidney disease, or unspecified chronic kidney disease; Z79.84 Long term (current) use of oral hypoglycemic drugs
CPT/HCPCS: 36415; 36416; 36569; 70491; 71045; 76770; 80048; 80053; 80202; 82306; 82553; 82570; 83036; 83605; 83880; 83970; 84156; 84484; 85025; 86803; 86850; 86900; 86901; 87040; 87070; 87077; 87149; 87186; 87205; 87389; 87811; 88305; 88312; 88341; 88342; 93005; 93306; 94760; 96365; 96375; 97139; C1751; J1170; J1650; J1815; J1885; J2250; J2270; J2405; J2543; J2704; J3010; J3370; J3490; J7030; J7050; P9047; Q9967; U0003; U0005

== ENCOUNTER 2022-08-22 19:48 | Inpatient (IN) | payer SELFPAY ==
[2022-08-22 20:20] LABS: #Eosinphils 0.3 thou/uL (0.0-0.7); #Lymphocytes 1.5 thou/uL (1.20-3.40); #Monocytes 0.6 thou/uL (0.11-0.59); #Neutrophils 10.6 thou/uL (1.40-6.50); %Basophils 0.3 % (0.0-1.0); %Eosinophils 2.4 % (0.0-10.0); %Lymphocytes 11.1 % (21.0-51.0); %Monocytes 4.8 % (0.0-10.0); %Neutrophils 81.4 % (42.0-75.0); Mean Corpuscular HGB CONC 32.4 g/dL (32.0-36.0); Mean Corpuscular Hemoglobin 29.6 pg (27.0-31.0); Mean Corpuscular Volume 91.3 fl (78.0-98.0); Mean Platelet Volume 8.2 fL (7.4-10.4); Platelet Count 455 10x3/uL (130-400); RBC Distribution Width 18.2 % (11.5-14.5); Red Blood Cell (RBC) Count 2.71 mill/uL (4.70-6.10)
[2022-08-22 20:41] LABS: ALT (SGPT) 39 U/L (8-55); AST (SGOT) 62 U/L (5-34); Albumin 3.1 g/dL (3.5-5.0); Alkaline Phosphatase 1720 U/L (40-110); Anion Gap 14 mmol/L (10-20); BUN (Urea Nitrogen) 24 mg/dL (8.9-20.6); Bilirubin, Total 5.2 mg/dL (0.2-1.2); Calc. Creatinine Clearance 0 mL/min (70-130); Calcium 8.9 mg/dL (7.8-10.44); Carbon Dioxide 23 mmol/L (22-29); Chloride 105 mmol/L (98-107); Estimated GFR 55; Globulin 4.2 g/dL (2.4-3.5); Glucose 227 mg/dL (70-105); Magnesium 1.6 mg/dL (1.6-2.6); Potassium 3.2 mmol/L (3.5-5.1); Protein, Total 7.3 g/dL (6.0-8.3); Sodium 139 mmol/L (136-145)
[2022-08-22] MEDS ORDERED: Potassium Chloride 20 MEQ TAB ONE (21:40)
[2022-08-22] MEDS ORDERED: Vancomycin 1 GM/200 ML (FROZEN) BAG ONE (21:57)
[2022-08-22] MEDS ORDERED: Piperacillin/Tazobactam 4.5 GM in Sodium Chloride 0.9% 100 ML IVPB SCH (22:15)
[2022-08-23 00:40] LABS: Bacteria/HPF None Seen HPF (None Seen); Bilirubin Negative (Negative); Blood, Urine Negative (Negative); Clarity Clear (Clear); Glucose, Urine (Dipstick) Normal (Negative); Ketone, Urine Negative (Negative); Leukocyte Negative Leu/uL (Negative); Nitrite Negative (Negative); Protein, Urine (Dipstick) 30 mg/dL (Neg-Trace); RBC/HPF 0-3 HPF (0-3); Specific Gravity, Urine 1.011 (1.002-1.036); Squamous Epithelial None Seen HPF (0-3); Urobilinogen Normal mg/dL (Less than 2); WBC/HPF 0-3 HPF (0-3); pH, Urine 5.5 (5.0-9.0)
[2022-08-23] MEDS ORDERED: Senokot S 8.6-50 MG TAB PO PRN (01:07)
[2022-08-23] MEDS ORDERED: Calcium Carbonate 500 MG ChewTAB PO PRN (01:07)
[2022-08-23] MEDS ORDERED: Ondansetron ODT 4 MG TAB PO PRN (01:07)
[2022-08-23] MEDS ORDERED: traMADol HCl 50 MG TAB PO PRN (01:47)
[2022-08-23] MEDS ORDERED: Dextrose 5% in Water 1,000 ML IV PRN (01:50)
[2022-08-23] MEDS ORDERED: Dextrose 50% Abboject 50 ML SYRINGE SLOW IVP PRN (01:50)
[2022-08-23 01:57] LABS: SARS-CoV-2 NAA Rapid Test Not Detected (NotDetected)
[2022-08-23 06:16] LABS: Hemoglobin A1c 6.3 % (4.0-6.0)
[2022-08-23 06:38] LABS: Anion Gap 12 mmol/L (10-20); BUN (Urea Nitrogen) 21 mg/dL (8.9-20.6); Calc. Creatinine Clearance 0 mL/min (70-130); Calcium 8.4 mg/dL (7.8-10.44); Carbon Dioxide 24 mmol/L (22-29); Chloride 107 mmol/L (98-107); Estimated GFR 70; Glucose 63 mg/dL (70-105); Sodium 140 mmol/L (136-145)
[2022-08-23 06:52] LABS: #Eosinphils 0.2 thou/uL (0.0-0.7); #Lymphocytes 1.9 thou/uL (1.20-3.40); #Monocytes 0.8 thou/uL (0.11-0.59); #Neutrophils 10.3 thou/uL (1.40-6.50); %Basophils 0.4 % (0.0-1.0); %Eosinophils 1.4 % (0.0-10.0); %Lymphocytes 14.2 % (21.0-51.0); %Monocytes 5.8 % (0.0-10.0); %Neutrophils 78.2 % (42.0-75.0); Anisocytosis MODERATE=16-30 cells (100X) (0-5/hpf); Hemoglobin 7.4 g/dL (14.0-18.0); MDiff Complete? YES; Mean Corpuscular HGB CONC 32.7 g/dL (32.0-36.0); Mean Corpuscular Volume 91.6 fl (78.0-98.0); Mean Platelet Volume 8.2 fL (7.4-10.4); Platelet Count 451 10x3/uL (130-400); Platelet Morphology Comment Appears Increased; RBC Distribution Width 18.2 % (11.5-14.5); Red Blood Cell (RBC) Count 2.48 mill/uL (4.70-6.10); Target Cells SLIGHT = 2-5 cells (100X) (0-1/hpf); White Blood Cell (WBC) Count 13.1 10x3/uL (4.8-10.8)
[2022-08-23] MEDS ORDERED: Cefepime 2 GM VIAL ONE (09:24)
[2022-08-23] MEDS: Nicotine 14 MG PATCH TD SCH (09:32)
[2022-08-23] MEDS: Cefepime 2 GM in Sodium Chloride 0.9% 100 ML IVPB SCH ×2 (09:37→20:59)
[2022-08-23] MEDS ORDERED: Famotidine 20 MG TAB ONE (09:43)
[2022-08-23] MEDS: Famotidine 20 MG TAB PO SCH ×2 (09:45→20:59)
[2022-08-23] MEDS: Gabapentin 300 MG CAP PO SCH ×3 (09:45→20:59)
[2022-08-23] MEDS: Multivitamin W/ Minerals 1 TAB PO SCH (09:48)
[2022-08-23] MEDS: Insulin Glargine 30 UNITS/0.3 ML VIAL SC SCH ×2 (09:52→21:00)
[2022-08-23] MEDS: DAPTOmycin 500 MG in Sodium Chloride 0.9% 100 ML IVPB SCH (10:20)
[2022-08-23 18:02] VITALS: BMI 23.2
[2022-08-23] MEDS ORDERED: FLU VACC QS2022-23(6MOS UP)/PF 60 MCG/0.5 ML SYRINGE IM ONE (18:30)
[2022-08-24] MEDS: Nicotine 14 MG PATCH TD SCH (05:13)
[2022-08-24] MEDS: HumaLOG 300 UNITS/3 ML VIAL SC PRN ×2 (05:50→12:43)
[2022-08-24] MEDS: Cefepime 2 GM in Sodium Chloride 0.9% 100 ML IVPB SCH ×2 (09:08→20:40)
[2022-08-24] MEDS: Famotidine 20 MG TAB PO SCH ×2 (09:09→20:41)
[2022-08-24] MEDS: Multivitamin W/ Minerals 1 TAB PO SCH (09:09)
[2022-08-24] MEDS: Insulin Glargine 30 UNITS/0.3 ML VIAL SC SCH ×2 (09:09→20:41)
[2022-08-24] MEDS: Gabapentin 300 MG CAP PO SCH ×3 (09:09→20:40)
[2022-08-24] MEDS ORDERED: Vancomycin HCl 1 GM in Sodium Chloride 0.9% 250 ML 250 ML IVPB SCH (09:29)
[2022-08-24] MEDS: VANCOMYCIN 1.25 GM/250 ML BAG 1.25 GM in Premix Bag 1 BAG IVPB SCH (10:59)
[2022-08-24] MEDS: Potassium Chloride 20 MEQ TAB PO SCH ×2 (10:59→14:56)
[2022-08-24] MEDS: DAPTOmycin 500 MG in Sodium Chloride 0.9% 100 ML IVPB SCH (11:45)
[2022-08-24 22:02] LABS: SARS-CoV-2 NAA Rapid Test Not Detected (NotDetected)
[2022-08-25] MEDS: VANCOMYCIN 1.25 GM/250 ML BAG 1.25 GM in Premix Bag 1 BAG IVPB SCH ×2 (00:04→11:37)
[2022-08-25 05:28] LABS: #Basophils 0.1 thou/uL (0.0-0.2); #Eosinphils 0.8 thou/uL (0.0-0.7); #Lymphocytes 1.5 thou/uL (1.20-3.40); #Monocytes 0.6 thou/uL (0.11-0.59); #Neutrophils 6.9 thou/uL (1.40-6.50); %Basophils 0.6 % (0.0-1.0); %Eosinophils 7.7 % (0.0-10.0); %Lymphocytes 15.5 % (21.0-51.0); %Monocytes 6.1 % (0.0-10.0); %Neutrophils 70.1 % (42.0-75.0); Hemoglobin 6.8 g/dL (14.0-18.0); Mean Corpuscular HGB CONC 32.2 g/dL (32.0-36.0); Mean Corpuscular Volume 93.3 fl (78.0-98.0); Mean Platelet Volume 8.8 fL (7.4-10.4); Platelet Count 418 10x3/uL (130-400); RBC Distribution Width 17.8 % (11.5-14.5); Red Blood Cell (RBC) Count 2.27 mill/uL (4.70-6.10); White Blood Cell (WBC) Count 9.8 10x3/uL (4.8-10.8)
[2022-08-25 05:47] LABS: ALT (SGPT) 44 U/L (8-55); AST (SGOT) 73 U/L (5-34); Albumin 2.3 g/dL (3.5-5.0); Alkaline Phosphatase 1465 U/L (40-110); Anion Gap 12 mmol/L (10-20); BUN (Urea Nitrogen) 27 mg/dL (8.9-20.6); Bilirubin, Total 4.9 mg/dL (0.2-1.2); Calc. Creatinine Clearance 89 mL/min (70-130); Calcium 8.4 mg/dL (7.8-10.44); Carbon Dioxide 24 mmol/L (22-29); Chloride 107 mmol/L (98-107); Estimated GFR 85; Globulin 3.9 g/dL (2.4-3.5); Glucose 80 mg/dL (70-105); Iron 26 ug/dL (65-175); Iron Binding Capacity, Total 224 mcg/dL (261-462); Potassium 3.8 mmol/L (3.5-5.1); Protein, Total 6.2 g/dL (6.0-8.3); Sodium 139 mmol/L (136-145)
[2022-08-25 05:52] LABS: Iron 29 ug/dL (65-175); Iron Binding Capacity, Total 246 mcg/dL (261-462)
[2022-08-25 06:03] LABS: Ferritin 457.44 ng/mL (22-322)
[2022-08-25 06:10] LABS: Vitamin B12 243 pg/mL (211-911)
[2022-08-25 06:17] LABS: HBCM Index 0.07 S/CO (0-0.79); HBSAg Index 0.19 S/CO (0-0.99); Hep A IgM AB Non-Reactive (NonReactive); Hep A IgM S/CO 0.14 S/CO (0-0.79); Hep B Surf Ag Non-Reactive S/CO (NonReactive); Hep C IgG Ab Non-Reactive (NonReactive); Hep C Index 0.06 S/CO (0-0.79); Hepatitis B Core IgM Abs Non-Reactive (NonReactive)
[2022-08-25] MEDS: Nicotine 14 MG PATCH TD SCH (06:32)
[2022-08-25] MEDS: Cefepime 2 GM in Sodium Chloride 0.9% 100 ML IVPB SCH ×2 (07:55→20:06)
[2022-08-25] MEDS: Insulin Glargine 30 UNITS/0.3 ML VIAL SC SCH ×2 (07:56→20:54)
[2022-08-25] MEDS: Multivitamin W/ Minerals 1 TAB PO SCH (07:56)
[2022-08-25] MEDS: Gabapentin 300 MG CAP PO SCH ×3 (07:56→20:07)
[2022-08-25] MEDS: Famotidine 20 MG TAB PO SCH ×2 (07:56→20:07)
[2022-08-25] MEDS: Ferrous Sulfate 325 MG TAB PO SCH (15:29)
[2022-08-25 22:39] LABS: Vancomycin, Trough 23.2 ug/mL
[2022-08-26] MEDS: VANCOMYCIN 1.25 GM/250 ML BAG 1.25 GM in Premix Bag 1 BAG IVPB SCH
[2022-08-26] MEDS: Vancomycin 1 GM in Premix Bag 1 BAG IVPB SCH ×2 (00:47→11:59)
[2022-08-26 04:18] LABS: #Basophils 0.1 thou/uL (0.0-0.2); #Eosinphils 0.8 thou/uL (0.0-0.7); #Lymphocytes 1.4 thou/uL (1.20-3.40); #Monocytes 0.7 thou/uL (0.11-0.59); #Neutrophils 7.3 thou/uL (1.40-6.50); %Basophils 0.5 % (0.0-1.0); %Eosinophils 7.4 % (0.0-10.0); %Monocytes 6.5 % (0.0-10.0); %Neutrophils 71.5 % (42.0-75.0); Mean Corpuscular HGB CONC 33.1 g/dL (32.0-36.0); Mean Corpuscular Hemoglobin 30.5 pg (27.0-31.0); Mean Corpuscular Volume 92.2 fl (78.0-98.0); Mean Platelet Volume 8.4 fL (7.4-10.4); Platelet Count 448 10x3/uL (130-400); RBC Distribution Width 17.3 % (11.5-14.5); Red Blood Cell (RBC) Count 2.62 mill/uL (4.70-6.10); White Blood Cell (WBC) Count 10.2 10x3/uL (4.8-10.8)
[2022-08-26 04:26] LABS: INR-International Normal Ratio 1.1; Prothrombin Time 14.8 sec (12.0-14.7)
[2022-08-26 04:36] LABS: ALT (SGPT) 50 U/L (8-55); AST (SGOT) 80 U/L (5-34); Albumin 2.4 g/dL (3.5-5.0); Alkaline Phosphatase 1681 U/L (40-110); Anion Gap 11 mmol/L (10-20); BUN (Urea Nitrogen) 34 mg/dL (8.9-20.6); Bilirubin, Total 5.7 mg/dL (0.2-1.2); CK (CPK) 48 U/L (30-200); Calc. Creatinine Clearance 90 mL/min (70-130); Calcium 8.5 mg/dL (7.8-10.44); Carbon Dioxide 25 mmol/L (22-29); Chloride 106 mmol/L (98-107); Estimated GFR 86; Glucose 92 mg/dL (70-105); Protein, Total 6.4 g/dL (6.0-8.3); Sodium 138 mmol/L (136-145)
[2022-08-26] MEDS: Nicotine 14 MG PATCH TD SCH (04:52)
[2022-08-26] MEDS: Famotidine 20 MG TAB PO SCH ×2 (09:00→21:06)
[2022-08-26] MEDS: Ferrous Sulfate 325 MG TAB PO SCH ×2 (09:00→16:09)
[2022-08-26] MEDS: Multivitamin W/ Minerals 1 TAB PO SCH (09:00)
[2022-08-26] MEDS: Gabapentin 300 MG CAP PO SCH ×3 (09:00→21:06)
[2022-08-26] MEDS: Cefepime 2 GM in Sodium Chloride 0.9% 100 ML IVPB SCH ×2 (09:01→21:05)
[2022-08-26] MEDS: Insulin Glargine 30 UNITS/0.3 ML VIAL SC SCH ×2 (09:01→21:06)
[2022-08-26 13:06] LABS: ANA Symphony (Qualitative) Negative (Negative); ANA Symphony (Quantitative) 0.4 Ratio (< 0.7 Negative); EliA Vaculitis New Method **** NEW METHOD ****; Mitochondrial Ab 0.6 U/mL (<4 Negative); dsDNA IgG Antibody 0.9 IU/mL (<10 Negative)
[2022-08-26] MEDS ORDERED: hydrOXYzine 25 MG TAB PO PRN (14:26)
[2022-08-27] MEDS: Vancomycin 1 GM in Premix Bag 1 BAG IVPB SCH ×2 (00:12→12:39)
[2022-08-27] MEDS: HumaLOG 300 UNITS/3 ML VIAL SC PRN (04:14)
[2022-08-27] MEDS: Nicotine 14 MG PATCH TD SCH (05:11)
[2022-08-27 05:13] LABS: INR-International Normal Ratio 1.1; Prothrombin Time 14.4 sec (12.0-14.7)
[2022-08-27 05:30] LABS: ALT (SGPT) 50 U/L (8-55); AST (SGOT) 67 U/L (5-34); Albumin 2.4 g/dL (3.5-5.0); Alkaline Phosphatase 1636 U/L (40-110); Anion Gap 11 mmol/L (10-20); BUN (Urea Nitrogen) 34 mg/dL (8.9-20.6); Calc. Creatinine Clearance 83 mL/min (70-130); Calcium 8.4 mg/dL (7.8-10.44); Carbon Dioxide 24 mmol/L (22-29); Chloride 104 mmol/L (98-107); Estimated GFR 78; Globulin 4.2 g/dL (2.4-3.5); Glucose 303 mg/dL (70-105); Potassium 3.9 mmol/L (3.5-5.1); Protein, Total 6.6 g/dL (6.0-8.3); Sodium 135 mmol/L (136-145)
[2022-08-27] MEDS: Cefepime 2 GM in Sodium Chloride 0.9% 100 ML IVPB SCH ×2 (09:11→20:26)
[2022-08-27] MEDS: Gabapentin 300 MG CAP PO SCH ×3 (09:11→20:25)
[2022-08-27] MEDS: Insulin Glargine 30 UNITS/0.3 ML VIAL SC SCH ×2 (09:12→20:25)
[2022-08-27] MEDS: Multivitamin W/ Minerals 1 TAB PO SCH (09:12)
[2022-08-27] MEDS: Ferrous Sulfate 325 MG TAB PO SCH ×2 (09:12→16:15)
[2022-08-27] MEDS: Famotidine 20 MG TAB PO SCH ×2 (09:12→20:25)
[2022-08-27 12:52] LABS: Vancomycin, Trough 22.6 ug/mL
[2022-08-28] MEDS: Vancomycin HCl 750 MG in Sodium Chloride 0.9% 250 ML 250 ML IVPB SCH ×2 (00:17→14:45)
[2022-08-28 04:50] LABS: #Eosinphils 0.7 thou/uL (0.0-0.7); #Lymphocytes 1.8 thou/uL (1.20-3.40); #Monocytes 0.8 thou/uL (0.11-0.59); %Basophils 0.4 % (0.0-1.0); %Eosinophils 6.7 % (0.0-10.0); %Lymphocytes 17.7 % (21.0-51.0); %Monocytes 7.8 % (0.0-10.0); %Neutrophils 67.3 % (42.0-75.0); Hemoglobin 7.8 g/dL (14.0-18.0); INR-International Normal Ratio 1.1; Mean Corpuscular HGB CONC 32.8 g/dL (32.0-36.0); Mean Corpuscular Hemoglobin 29.9 pg (27.0-31.0); Mean Corpuscular Volume 91.1 fl (78.0-98.0); Mean Platelet Volume 8.6 fL (7.4-10.4); Platelet Count 462 10x3/uL (130-400); Prothrombin Time 14.3 sec (12.0-14.7); RBC Distribution Width 16.9 % (11.5-14.5); White Blood Cell (WBC) Count 10.4 10x3/uL (4.8-10.8)
[2022-08-28 05:11] LABS: ALT (SGPT) 50 U/L (8-55); AST (SGOT) 70 U/L (5-34); Albumin 2.3 g/dL (3.5-5.0); Alkaline Phosphatase 1557 U/L (40-110); Anion Gap 11 mmol/L (10-20); BUN (Urea Nitrogen) 28 mg/dL (8.9-20.6); Calc. Creatinine Clearance 102 mL/min (70-130); Calcium 8.4 mg/dL (7.8-10.44); Carbon Dioxide 26 mmol/L (22-29); Chloride 104 mmol/L (98-107); Estimated GFR 99; Glucose 135 mg/dL (70-105); Potassium 3.5 mmol/L (3.5-5.1); Protein, Total 6.3 g/dL (6.0-8.3); Sodium 137 mmol/L (136-145)
[2022-08-28] MEDS: Nicotine 14 MG PATCH TD SCH (05:12)
[2022-08-28] MEDS: Cefepime 2 GM in Sodium Chloride 0.9% 100 ML IVPB SCH ×2 (09:23→21:13)
[2022-08-28] MEDS: Insulin Glargine 30 UNITS/0.3 ML VIAL SC SCH ×2 (09:23→21:15)
[2022-08-28] MEDS: Gabapentin 300 MG CAP PO SCH ×3 (09:24→21:14)
[2022-08-28] MEDS: Multivitamin W/ Minerals 1 TAB PO SCH (09:24)
[2022-08-28] MEDS: Famotidine 20 MG TAB PO SCH ×2 (09:24→21:14)
[2022-08-28] MEDS: Ferrous Sulfate 325 MG TAB PO SCH ×2 (09:24→17:16)
[2022-08-28] MEDS: HumaLOG 300 UNITS/3 ML VIAL SC PRN (21:16)
[2022-08-29] MEDS: Vancomycin HCl 750 MG in Sodium Chloride 0.9% 250 ML 250 ML IVPB SCH ×2 (01:23→13:52)
[2022-08-29 04:44] LABS: #Basophils 0.1 thou/uL (0.0-0.2); #Eosinphils 0.7 thou/uL (0.0-0.7); #Lymphocytes 1.7 thou/uL (1.20-3.40); #Monocytes 0.9 thou/uL (0.11-0.59); #Neutrophils 7.9 thou/uL (1.40-6.50); %Basophils 0.8 % (0.0-1.0); %Eosinophils 5.9 % (0.0-10.0); %Lymphocytes 15.2 % (21.0-51.0); %Neutrophils 70.1 % (42.0-75.0); Hemoglobin 7.8 g/dL (14.0-18.0); Mean Corpuscular HGB CONC 32.6 g/dL (32.0-36.0); Mean Corpuscular Hemoglobin 29.8 pg (27.0-31.0); Mean Corpuscular Volume 91.7 fl (78.0-98.0); Mean Platelet Volume 8.3 fL (7.4-10.4); Platelet Count 468 10x3/uL (130-400); RBC Distribution Width 16.7 % (11.5-14.5); Red Blood Cell (RBC) Count 2.63 mill/uL (4.70-6.10); White Blood Cell (WBC) Count 11.2 10x3/uL (4.8-10.8)
[2022-08-29 04:57] LABS: INR-International Normal Ratio 1.1
[2022-08-29 05:09] LABS: ALT (SGPT) 48 U/L (8-55); AST (SGOT) 66 U/L (5-34); Albumin 2.3 g/dL (3.5-5.0); Alkaline Phosphatase 1499 U/L (40-110); Anion Gap 12 mmol/L (10-20); BUN (Urea Nitrogen) 26 mg/dL (8.9-20.6); Calc. Creatinine Clearance 105 mL/min (70-130); Calcium 8.3 mg/dL (7.8-10.44); Carbon Dioxide 23 mmol/L (22-29); Chloride 104 mmol/L (98-107); Estimated GFR 103; Glucose 163 mg/dL (70-105); Magnesium 1.6 mg/dL (1.6-2.6); Potassium 4.1 mmol/L (3.5-5.1); Protein, Total 6.3 g/dL (6.0-8.3); Sodium 135 mmol/L (136-145)
[2022-08-29] MEDS: Nicotine 14 MG PATCH TD SCH (06:02)
[2022-08-29] MEDS: Gabapentin 300 MG CAP PO SCH ×3 (08:42→21:17)
[2022-08-29] MEDS: Cholestyramine/Aspartame 4 gm Packet PO SCH (08:42)
[2022-08-29] MEDS: Multivitamin W/ Minerals 1 TAB PO SCH (08:42)
[2022-08-29] MEDS: Ferrous Sulfate 325 MG TAB PO SCH ×2 (08:42→16:56)
[2022-08-29] MEDS: Famotidine 20 MG TAB PO SCH ×2 (08:42→21:18)
[2022-08-29] MEDS: Cefepime 2 GM in Sodium Chloride 0.9% 100 ML IVPB SCH ×2 (08:42→21:21)
[2022-08-29] MEDS: Insulin Glargine 30 UNITS/0.3 ML VIAL SC SCH ×2 (08:43→21:18)
[2022-08-29 12:23] LABS: Vancomycin, Trough 15.9 ug/mL
[2022-08-29] MEDS: HumaLOG 300 UNITS/3 ML VIAL SC PRN ×2 (16:57→21:18)
[2022-08-30] MEDS: Vancomycin HCl 750 MG in Sodium Chloride 0.9% 250 ML 250 ML IVPB SCH ×2 (03:12→13:25)
[2022-08-30 04:53] LABS: #Basophils 0.1 thou/uL (0.0-0.2); #Eosinphils 0.6 thou/uL (0.0-0.7); #Lymphocytes 1.8 thou/uL (1.20-3.40); #Neutrophils 7.4 thou/uL (1.40-6.50); %Basophils 0.8 % (0.0-1.0); %Eosinophils 5.6 % (0.0-10.0); %Lymphocytes 16.6 % (21.0-51.0); %Monocytes 9.3 % (0.0-10.0); %Neutrophils 67.7 % (42.0-75.0); Hemoglobin 7.6 g/dL (14.0-18.0); Mean Corpuscular HGB CONC 33.1 g/dL (32.0-36.0); Mean Corpuscular Hemoglobin 30.3 pg (27.0-31.0); Mean Corpuscular Volume 91.6 fl (78.0-98.0); Mean Platelet Volume 8.4 fL (7.4-10.4); Platelet Count 470 10x3/uL (130-400); RBC Distribution Width 16.7 % (11.5-14.5); White Blood Cell (WBC) Count 10.9 10x3/uL (4.8-10.8)
[2022-08-30 05:19] LABS: INR-International Normal Ratio 1.1; Prothrombin Time 14.8 sec (12.0-14.7)
[2022-08-30 05:25] LABS: ALT (SGPT) 49 U/L (8-55); AST (SGOT) 76 U/L (5-34); Albumin 2.3 g/dL (3.5-5.0); Alkaline Phosphatase 1476 U/L (40-110); Anion Gap 12 mmol/L (10-20); BUN (Urea Nitrogen) 22 mg/dL (8.9-20.6); Bilirubin, Total 6.2 mg/dL (0.2-1.2); CRP (Inflammatory) 5.09 mg/dL (= or < 0.5); Calc. Creatinine Clearance 114 mL/min (70-130); Calcium 8.3 mg/dL (7.8-10.44); Carbon Dioxide 24 mmol/L (22-29); Chloride 105 mmol/L (98-107); Estimated GFR 107; Globulin 3.9 g/dL (2.4-3.5); Glucose 109 mg/dL (70-105); Potassium 3.8 mmol/L (3.5-5.1); Protein, Total 6.2 g/dL (6.0-8.3); Sodium 137 mmol/L (136-145)
[2022-08-30] MEDS: Nicotine 14 MG PATCH TD SCH (05:54)
[2022-08-30] MEDS: Cholestyramine/Aspartame 4 gm Packet PO SCH (09:31)
[2022-08-30] MEDS: Insulin Glargine 30 UNITS/0.3 ML VIAL SC SCH (09:31)
[2022-08-30] MEDS: Cefepime 2 GM in Sodium Chloride 0.9% 100 ML IVPB SCH (09:31)
[2022-08-30] MEDS: Ferrous Sulfate 325 MG TAB PO SCH (09:33)
[2022-08-30] MEDS: Gabapentin 300 MG CAP PO SCH (09:33)
[2022-08-30] MEDS: Multivitamin W/ Minerals 1 TAB PO SCH (09:33)
[2022-08-30] MEDS: Famotidine 20 MG TAB PO SCH (09:33)
[2022-08-30 13:11] VITALS: BP 146/75; TEMP 98
== END 2022-08-30 14:41 | disposition home or self-care (01) | DRG 177 ==
LOC: ERS 19:48 → ERHOLD 08-23 00:44 → 2NO 08-23 17:39
PROVIDERS: ADMIT Neurological Surgery; ATTEND Internal Medicine
PROC: 30233N1 Transfusion of Nonautologous Red Blood Cells into Peripheral Vein, Percutaneous Approach (ICD-10-PCS; principal; 2022-08-25)
DX: J15.212 Pneumonia due to Methicillin resistant Staphylococcus aureus (principal); K83.1 Obstruction of bile duct; L02.11 Cutaneous abscess of neck; N17.9 Acute kidney failure, unspecified; E44.0 Moderate protein-calorie malnutrition; E11.22 Type 2 diabetes mellitus with diabetic chronic kidney disease; E87.6 Hypokalemia; D63.1 Anemia in chronic kidney disease; F17.210 Nicotine dependence, cigarettes, uncomplicated; N18.2 Chronic kidney disease, stage 2 (mild); Z20.822 Contact with and (suspected) exposure to COVID-19; Z79.899 Other long term (current) drug therapy; Z79.4 Long term (current) use of insulin; Z68.23 Body mass index [BMI] 23.0-23.9, adult
CPT/HCPCS: 36415; 36416; 36430; 71045; 71275; 74177; 76705; 80048; 80053; 80074; 80202; 81003; 81015; 82103; 82390; 82550; 82607; 82728; 82977; 83010; 83036; 83516; 83540; 83550; 83605; 83690; 83735; 84484; 85025; 85610; 86015; 86038; 86140; 86225; 86850; 86900; 86901; 87040; 93005; 96361; 96365; 96367; 96375; 97139; J0692; J0744; J0878; J1650; J1815; J1956; J2543; J3370; J3370-JW; J3490; J7050; P9016; Q9967; U0002

== ENCOUNTER 2024-02-04 12:54 | Emergency (ER) | payer MEDICAID, OTHER, SELFPAY | END 2024-02-04 13:08 | disposition left against medical advice (07) | LOC: ERS 12:54 | DX: Z53.21 Procedure and treatment not carried out due to patient leaving prior to being seen by health care provider (principal) ==

== ENCOUNTER 2025-04-26 14:29 | Outpatient (CLI) | payer MEDICARE, MEDICAID | END 2025-04-26 14:30 | disposition home or self-care (01) | LOC: RAD 14:29 | PROVIDERS: ATTEND Internal Medicine Nephrology | DX: N18.5 Chronic kidney disease, stage 5 (principal); D63.1 Anemia in chronic kidney disease | CPT/HCPCS: 36415; 71046; 80048; 85018; 86704; 86706; 86803; 87340 ==